=== PATIENT | female | born 1985 | race Caucasian/White ===

== ENCOUNTER 2017-12-03 07:58 | Emergency (ER) | payer MEDICAID, SELFPAY ==
[2017-12-03 08:03] VITALS: BP 144/98; PULSE 80; RESP 18; TEMP 36.8; O2SAT 96
--- NOTE | 2017-12-03 08:16 | ED.GENADUL_ITS ---
Discharge Plan Disposition Patient Disposition: HOME Condition: Improving Discharge Details Chief Complaint: RespSymp Clinical Impression: Pneumonia Primary Care Provider: AC,LOCAL ED Provider: Amauri An Home Meds and New Rx's Prescriptions: New prednisone 20 mg tablet 40 mg PO DAILY 5 Days Qty: 10 RF: 0 doxycycline hyclate 100 mg capsule 100 mg PO BID 10 Days Qty: 20 RF: 0 Continue methadone 10 mg/mL Concentrate 40 mg PO DAILY RF: 0 Discharge Instructions Instructions: Pneumonia (ED) Additional Instructions: Follow-up with your primary care physician in [facility] if not improving in 5-7 days time. Home to rest. Small, frequent sips of fluids to maintain hydration Take antibiotics and prednisone as prescribed. May use albuterol if needed for persistent cough during times of illness. Please continue your efforts to decrease smoking. Return to the emergency department for any acute concerns Discharge Data Discharge Date/Time-TO BE ENTERED AT DEPARTURE: 12/03/17 09:34 Medical Decision Making 32-year-old female smoker presents with cough and congestion over days time. She is afebrile and well-appearing with normal oxygenation. Patient given teaching and use of albuterol with improvement at the bedside. I will place her on a course of burst of steroids for bronchospasm. Chest x-ray does reveal linear infiltrate consistent with pneumonia. I will place her on a course of Augmentin. She has primary care [facility] with whom she will follow-up if not improving. Return precautions to the ER discussed the patient prior to discharge. HPI General Mode of arrival: ambulatory . Date/Time Provider Initiated Documentation: 12/03/17 08:08 . Limitations to Documentation: no limitations . History of Present Illness 32 year old F presents to the emergency department with the chief complaint of Cough, described as moderate, Quality is described as constant, Patient reports no radiation. Patient started experiencing this day(s) and it has been constant. No relieving factors improve symptom(s), No exacerbating factors reported . Patient notes fever/chills. HPI Narrative: 32-year-old female presents with cough, congestion, wheeze. She is a smoker and has positive sick contacts at home home. She has been able to tolerate liquids and solids by mouth without GI upset. She has had an inhaler as a child but none currently. Related Data Home Medications Medication Instructions Recorded Confirmed doxycycline hyclate 100 mg PO BID 10 Days #20 cap 12/03/17 methadone 40 mg PO DAILY 12/03/17 12/03/17 prednisone 40 mg PO DAILY 5 Days #10 tab 12/03/17 Previous Rx's Medication Instructions Recorded doxycycline hyclate 100 mg PO BID 10 Days #20 cap 12/03/17 prednisone 40 mg PO DAILY 5 Days #10 tab 12/03/17 Allergies Allergy/AdvReac Type Severity Reaction Status Date / Time Penicillins Allergy Intermediate Skin Rash Unverified 12/03/17 08:12 General Stated Complaint: RespSymp CHAD: 3 Review of Systems Review of Systems 8 systems reviewed and otherwise negative [facility] Social History Smoking/Tobacco Use Status: Current every day Exam Narrative Exam Narrative: 32-year-old female presents with fever, cough, congestion, wheeze. Her vital signs are unremarkable and reassuring. She is speaking in full sentences and has normal oxygenation. Patient's exam is most notable for bilateral end expiratory wheeze and cough. Consistent with bronchospasm. Patient given prednisone and albuterol, referred for chest x-ray to rule out underlying infiltrate. Course Vital Signs Temperature 36.8 C 12/03/17 08:03 Pulse 80 12/03/17 08:03 Respiratory Rate 18 12/03/17 08:03 Blood Pressure 144/98 H 12/03/17 08:03 Pulse Oximetry 96 12/03/17 08:03 Temperature 36.8 C 12/03/17 08:03 Temperature Source Temporal Artery Scan 12/03/17 08:03 Pulse 80 12/03/17 08:03 Respiratory Rate 18 12/03/17 08:03 Respiratory Effort 12/03/17 08:09 Respiratory Depth Normal 12/03/17 08:09 Blood Pressure 144/98 H 12/03/17 08:03 Blood Pressure Position Sitting 12/03/17 08:03 Pulse Oximetry 96 12/03/17 08:03 Oxygen Delivery Method Room Air 12/03/17 08:03 Oxygen Flow Rate 0 12/03/17 08:03 Pain Level 6 12/03/17 08:03
[2017-12-03] MEDS: predniSONE 20 MG TAB 60 MG PO (08:17)
[2017-12-03] MEDS: Albuterol HFA 8 GM 60 PUFF INH IH (08:17)
--- NOTE | 2017-12-03 09:10 | DI.RAD_ITS ---
SYMPTOM/DIAGNOSIS: COUGH, SOB PA AND LATERAL CHEST: The heart is not enlarged. There is a question of minimal patchy/streaky opacity of the left lower lung field which may correspond to the lingula. A small area of atelectasis or scarring also noted in the lingula. Otherwise the lungs are clear. No pleural effusion is seen. CONCLUSION: Question lingular infiltrate, correlation requested regarding the possibility of pneumonia.
--- NOTE | 2017-12-03 09:50 | RESPIRATORY ---
Pt instructed on MDI with spacer use. She was able to demonstrate back excellent technique.
== END 2017-12-03 09:34 | disposition home or self-care (01) ==
LOC: ER 09:35
PROVIDERS: Emergency Provider Emergency Medicine
DX: J18.9 Pneumonia, unspecified organism (principal); F17.210 Nicotine dependence, cigarettes, uncomplicated
CPT/HCPCS: 99283; 71046; 94664; J7512

== ENCOUNTER 2018-03-15 11:12 | Emergency (ER) | payer MEDICAID, SELFPAY ==
[2018-03-15 11:19] VITALS: BP 132/81; PULSE 97; RESP 18; TEMP 36.8; O2SAT 93
--- NOTE | 2018-03-15 11:24 | DI.RAD_ITS ---
SYMPTOMS/DIAGNOSIS: COUGH, ? PNEUMONIA PA AND LATERAL CHEST: Comparison 12/03/17. The heart is normal in size. The lungs are clear. The mediastinal structures and pleura appear intact. CONCLUSION: Normal chest. The findings were discussed with Dr. Garcia of the emergency department on the date of the examination.
--- NOTE | 2018-03-15 11:27 | ED.GENADUL_ITS ---
Discharge Plan Disposition Patient Disposition: HOME Condition: Improving Discharge Details Chief Complaint: RespSymp Clinical Impression: Acute bronchitis, Tobacco abuse Primary Care Provider: Barbara,Local ED Provider: Jeanne Garcia Home Meds and New Rx's Prescriptions: New prednisone 50 mg tablet 50 mg PO DAILY 4 Days Qty: 4 RF: 0 doxycycline hyclate 100 mg tablet 100 mg PO BID 5 Days Qty: 10 RF: 0 Continued methadone 10 mg/mL Concentrate 40 mg PO DAILY RF: 0 Discharge Instructions Instructions: Acute Bronchitis (ED) Additional Instructions: Take the steroids until finished. Use the albuterol inhaler as needed and directed. If your symptoms do not improve or worsen over the next few days, you may start the antibiotics. Consider quitting smoking as this will prolong your illness along with other dangerous side effects of smoking. You will receive a call from care management regarding a follow-up appoint with her primary care doctor for reevaluation. Return immediately to the emergency department any worsening or new concerning symptoms. Discharge Data Discharge Date/Time-TO BE ENTERED AT DEPARTURE: 03/15/18 13:23 Discharge Physician: Jeanne Garcia Medical Decision Making 33-year-old female with a history of asthma, former heroin use now on methadone for the past 2 years who presents with cough with green sputum, shortness of breath, wheezing, chest pain with coughing, left ear pain and headache for the past week. Denies fever and has had good appetite. Last antibiotics for pneumonia in November. O2 sat 93% on arrival. Heart rate 97. Patient appears nontoxic and in no acute distress. She does have frequent coughing and wheezing throughout. Neb treatment given on arrival. Will give second neb, p.o. steroids. Chest x-ray appears negative. Do not see utility in checking influenza of symptoms present for more than 1 week and she has no fevers or other flulike symptoms. 1300 --chest x-ray negative. Patient feels better and feels good to go home. Oxygen saturation 95% on room air. Breath sounds improved, still with some wheezing. Will send home with steroids and albuterol inhaler. Although no pneumonia on x-ray, patient is a smoker, will send home with antibiotics if symptoms do not improve or worsen over the next few days. Will place patient on care management list to arrange for follow-up appointment for reevaluation by primary care doctor. Patient instructed return here at any time if worse. Medical Records Medical records reviewed: Yes I reviewed the patient's medical records. Imaging Data Radiologic Study: Radiologist's impression: PA AND LATERAL CHEST: Comparison 12/03/17. The heart is normal in size. The lungs are clear. The mediastinal structures and pleura appear intact. CONCLUSION: Normal chest. Lab Data Lab results reviewed: Yes I reviewed the patient's lab results. test negative. HPI General Mode of arrival: ambulatory . Date/Time Provider Initiated Documentation: 03/15/18 11:24 . Limitations to Documentation: no limitations . Information obtained by: patient . HPI Narrative: Patient is a 33-year-old female with history of asthma on methadone due to previous heroin use who presents with cough with green sputum, shortness of breath, chest pain with coughing, headache, wheezing for the past week. States she has sore throat but this is now improved. Also admitted to some left ear pain fatigue. States she was diagnosed with pneumonia and last on antibiotics in November. She states she has been eating and drinking normally. She denies any known fever. She did not receive a flu shot this year. Related Data Home Medications Medication Instructions Recorded Confirmed methadone 40 mg PO DAILY 12/03/17 03/15/18 doxycycline hyclate 100 mg PO BID 5 Days #10 tab 03/15/18 prednisone 50 mg PO DAILY 4 Days #4 tab 03/15/18 Previous Rx's Medication Instructions Recorded doxycycline hyclate 100 mg PO BID 5 Days #10 tab 03/15/18 prednisone 50 mg PO DAILY 4 Days #4 tab 03/15/18 Allergies Allergy/AdvReac Type Severity Reaction Status Date / Time Penicillins Allergy Intermediate Skin Rash Unverified 12/03/17 08:12 General Stated Complaint: RespSymp CHAD: 3 Review of Systems Review of Systems All systems reviewed & are unremarkable except as noted in HPI and below Constitutional Reports as per HPI, Denies chills, Denies fever(s) and Reports headache(s) Eyes Denies blurry vision ENT Denies dizziness, Reports otalgia, Reports headache(s), Reports sore throat and Denies throat swelling Cardiovascular Reports chest pain and Reports dyspnea Respiratory Reports chest congestion, Reports cough, Reports pain with cough, Reports dyspnea and Reports wheezing Gastrointestinal Denies abdominal pain, Denies diarrhea and Denies vomiting Genitourinary Denies hematuria and Denies dysuria Musculoskeletal Denies back pain and Denies numbness Integumentary/Breasts Denies lesions and Denies rash Neurologic Denies dizziness, Reports headache(s) and Denies numbness Allergic/Immunologic Denies throat swelling and Reports wheezing [facility] Medical History Opiate abuse, episodic (Acute) Asthma (Chronic) Surgical History History of bilateral tubal ligation (Acute) History of hip surgery (Acute) Social History Smoking/Tobacco Use Status: Current every day alcohol intake: never substance use type: other details: former heroin use, now on methadone x 2 years Exam Const General: cooperative and healthy appearing Orientation: alert and awake HENMT Head: normal to inspection Ears: hearing grossly normal bilaterally, external ears normal and TM's normal bilaterally General nose exam: external nose normal Face and sinus: normal facial exam Mouth: oral mucosae normal Teeth and gingiva: dentition normal Throat: posterior oropharynx normal Eyes General: appearance normal, both eyes and all related structures Eyelids: eyelids normal EOM: EOM intact bilaterally Neck Neck: normal visual inspection Lymphatic: no lymphadenopathy noted Resp Effort & Inspection: normal respiratory effort and able to speak in complete sentences Auscultation: no rhonchi and wheezes Cardio Rate: regular rate Rhythm: regular rhythm Skin General skin exam: no rashes or lesions noted Neuro General: alert and awake Cognition: normal cognition Speech: speech normal Gait: normal gait Motor: muscle tone normal throughout Sensory Exam: no sensory deficits noted Extrem General: normal to inspection, full ROM and no edema Psych Appearance: grossly normal Mental Status: mental status grossly normal Speech and Movement: speech and movement normal Affect: normal affect Thought Process: normal Course Vital Signs Temperature 98.2 F 03/15/18 11:19 Pulse 97 H 03/15/18 11:19 Respiratory Rate 18 03/15/18 11:19 Blood Pressure 132/81 03/15/18 11:19 Pulse Oximetry 93 L 03/15/18 11:19 Temperature 98.2 F 03/15/18 11:19 Temperature Source Temporal Artery Scan 03/15/18 11:19 Pulse 97 H 03/15/18 11:19 Respiratory Rate 18 03/15/18 11:19 Respiratory Effort Non-Labored 03/15/18 11:23 Blood Pressure 132/81 03/15/18 11:19 Blood Pressure Position Sitting 03/15/18 11:19 Pulse Oximetry 93 L 03/15/18 11:19 Oxygen Delivery Method Room Air 03/15/18 11:19 Oxygen Flow Rate 0 03/15/18 11:19
[2018-03-15 11:50] VITALS: RESP 4
[2018-03-15] MEDS: Albuterol/Ipratropium 3 ML UPD VIAL UPD (11:50)
[2018-03-15] MEDS: predniSONE 20 MG TAB 60 MG PO (12:34)
[2018-03-15] MEDS: Albuterol 2.5 MG/3 ML INH SOLN VIAL 5 MG UPD (12:35)
--- NOTE | 2018-03-15 12:38 | NUR.NOTE ---
patient medicated per MD order Nursing Note:
[2018-03-15 13:02] VITALS: BP 119/70; PULSE 98; RESP 20; O2SAT 97
[2018-03-15] MEDS: Albuterol HFA 8 GM 60 PUFF INH IH (13:22)
--- NOTE | 2018-03-18 11:26 | PDOC.ERCMPRO ---
Care Management Progress Note 03/18- Dr. 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 Referral faxed to [facility] this am.
--- NOTE | 2018-03-18 11:51 | CMPROGNOTE_ITS ---
Care Management Progress Note 03/18- Dr. 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 Referral faxed to [facility] this am.
== END 2018-03-15 13:23 | disposition home or self-care (01) ==
PROVIDERS: Emergency Provider Physician Assistant
DX: J20.9 Acute bronchitis, unspecified (principal); F17.210 Nicotine dependence, cigarettes, uncomplicated
CPT/HCPCS: 81025; 94640; 99284; 71046; 99285; J7512; J7613; J7620

== ENCOUNTER 2018-09-22 11:40 | Emergency (ER) | payer MEDICAID, SELFPAY ==
[2018-09-22 11:45] VITALS: BP 133/93; PULSE 84; RESP 14; TEMP 36.8; O2SAT 97
--- NOTE | 2018-09-22 12:55 | ED.GENADUL_ITS ---
Discharge Plan Disposition Patient Disposition: HOME Condition: Stable Discharge Details Chief Complaint: FacialProb Clinical Impression: TMJ inflammation, Swelling of right side of face Primary Care Provider: Barbara,Local ED Provider: Jeanne Garcia Home Meds and New Rx's Prescriptions: New methylprednisolone [Medrol (Avinash)] 4 mg tablets,dose pack See Rx Instructions .ROUTE .COMPLEX Qty: 21 RF: 0 doxycycline hyclate 100 mg tablet 100 mg PO BID 7 Days Qty: 14 RF: 0 Continued methadone 10 mg/mL Concentrate 40 mg PO DAILY RF: 0 Discharge Instructions Instructions: Temporomandibular Disorder (ED) Additional Instructions: Apply ice to the affected area several times daily for 20 minutes at a time. Alternate Tylenol and Motrin as needed and directed for pain. Take the steroids until finished. If you have no relief in symptoms or development of redness, worsening pain or fever, start the antibiotics. Follow-up with your primary care doctor next week for reevaluation. Return immediately to the emergency department if you develop any worsening or new concerning symptoms. Discharge Data Discharge Physician: Jeanne Garcia Medical Decision Making 33-year-old female with a history of asthma and former narcotic drug abuse who presents with right-sided facial swelling and pain since yesterday. She denies fever. She denies any known injury. She states she has not been excessively chewing any feelings and is unsure if she grinds her teeth. She denies any ear pain, sore throat, cough or neck pain. Vitals within normal limits. She is afebrile and appears nontoxic. She has an area of tenderness and edema overlying her right TMJ. Most likely appears consistent with tendinitis versus sprain strain of TMJ. Swelling and tenderness is localized in the TMJ and does not appear consistent with salivary stone. Do not see an indication for imaging. Suspect less likely dental infection or cellulitis. Patient advised to alternate Tylenol and Motrin. We will send home with a prescription for Medrol Dosepak. We will also give a prescription for antibiotics which she advised to start if she develops any signs of cellulitis. She is advised to follow-up with her primary care doctor for evaluation or to return here if worse. HPI General Mode of arrival: ambulatory . Date/Time Provider Initiated Documentation: 09/22/18 11:51 . Limitations to Documentation: no limitations . Information obtained by: patient . HPI Narrative: Patient is a 33-year-old female who presents with right-sided facial swelling since yesterday. She states the area is painful and tender to touch. She denies any known fever, ear pain, sore throat, dental pain or injury. She states she does not chew gum or chew anything recently which may have been excessively hard. She denies headache or neck pain. She took Motrin yesterday for pain without relief. Related Data Home Medications Medication Instructions Recorded Confirmed methadone 40 mg PO DAILY 12/03/17 09/22/18 doxycycline hyclate 100 mg PO BID 7 Days #14 tab 09/22/18 methylprednisolone [Medrol (Avinash)] See Rx Instructions .ROUTE 09/22/18 .COMPLEX #21 dose pk Previous Rx's Medication Instructions Recorded doxycycline hyclate 100 mg PO BID 7 Days #14 tab 09/22/18 methylprednisolone [Medrol (Avinash)] See Rx Instructions .ROUTE 09/22/18 .COMPLEX #21 dose pk Allergies Allergy/AdvReac Type Severity Reaction Status Date / Time Penicillins Allergy Intermediate Skin Rash Unverified 09/22/18 11:48 General Stated Complaint: FacialProb CHAD: 4 Review of Systems Review of Systems All systems reviewed & are unremarkable except as noted in HPI and below Constitutional Reports as per HPI, Denies chills and Denies fever(s) Eyes Denies blurry vision ENT Denies dizziness, Reports facial pain (and swelling), Denies sore throat and Denies throat swelling Cardiovascular Denies chest pain and Denies dyspnea Respiratory Denies cough and Denies dyspnea Gastrointestinal Denies abdominal pain, Denies diarrhea and Denies vomiting Genitourinary Denies hematuria and Denies dysuria Musculoskeletal Denies back pain and Denies numbness Integumentary/Breasts Denies lesions and Denies rash Neurologic Denies dizziness, Denies focal weakness and Denies numbness Allergic/Immunologic Denies throat swelling [facility] Social History Smoking/Tobacco Use Status: Current every day Tobacco Type: cigarettes Alcohol Intake: never Drug use: Never Substance use type: does not use and other Details: former heroin use, now on methadone x 2 years Do you feel safe at home: Yes Do you feel safe in your relationship?: Yes Exam Const General: cooperative and healthy appearing Orientation: alert and awake HENMT Head: atraumatic Head images: 1. 3x3cm area of tender edema overlying R temporomandibular joint. There is no erythema, fluctuance, induration. No abrasions or puncture wounds. No lesion or rash noted. Ears: hearing grossly normal bilaterally, external ears normal and TM's normal bilaterally General nose exam: external nose normal Mouth: oral mucosae normal Teeth and gingiva: dentition normal and other (No tenderness to palp of teeth. No evidence of dental abscess or trauma) Throat: posterior oropharynx normal Eyes General: appearance normal, both eyes and all related structures Eyelids: eyelids normal Pupils: PERRL EOM: EOM intact bilaterally Neck Neck: normal visual inspection Lymphatic: no lymphadenopathy noted Chest Chest: normal inspection of the chest Resp Effort & Inspection: normal respiratory effort and able to speak in complete sentences Cardio Rate: regular rate Skin General skin exam: no rashes or lesions noted Neuro General: alert and awake Cognition: normal cognition Speech: speech normal Gait: normal gait Motor: muscle tone normal throughout Sensory Exam: no sensory deficits noted Extrem General: normal to inspection, full ROM and normal capillary refill Psych Appearance: grossly normal Mental Status: mental status grossly normal Speech and Movement: speech and movement normal Affect: normal affect Thought Process: normal Course Vital Signs Temperature 98.2 F 09/22/18 11:45 Pulse 84 09/22/18 11:45 Respiratory Rate 14 09/22/18 11:45 Blood Pressure 133/93 H 09/22/18 11:45 Pulse Oximetry 97 09/22/18 11:45 Temperature 98.2 F 09/22/18 11:45 Temperature Source Temporal Artery Scan 09/22/18 11:45 Pulse 84 09/22/18 11:45 Respiratory Rate 14 09/22/18 11:45 Respiratory Effort Non-Labored 09/22/18 11:47 Blood Pressure 133/93 H 09/22/18 11:45 Blood Pressure Position Sitting 09/22/18 11:45 Pulse Oximetry 97 09/22/18 11:45 Oxygen Delivery Method Room Air 09/22/18 11:45 Oxygen Flow Rate 0 09/22/18 11:45 Pain Level 3 09/22/18 11:45
== END 2018-09-22 13:30 | disposition home or self-care (01) ==
PROVIDERS: Emergency Provider Physician Assistant
DX: R22.0 Localized swelling, mass and lump, head (principal); M26.69 Other specified disorders of temporomandibular joint; M26.621 Arthralgia of right temporomandibular joint
CPT/HCPCS: 99283

== ENCOUNTER 2018-11-03 13:27 | Emergency (ER) | payer MEDICAID, SELFPAY ==
[2018-11-03 13:32] VITALS: BP 125/83; PULSE 71; RESP 16; TEMP 36.4; O2SAT 98
--- NOTE | 2018-11-03 13:39 | DI.RAD_ITS ---
SYMPTOM/DIAGNOSIS: GLASS IN HEEL LEFT HEEL: No bony, joint or soft tissue abnormality is seen. No radiopaque foreign body identified.
--- NOTE | 2018-11-03 13:54 | ED.GENADUL_ITS ---
Discharge Plan Disposition Patient Disposition: HOME Condition: Stable Discharge Details Chief Complaint: Laceration Clinical Impression: Puncture wound, Laceration of foot Primary Care Provider: Barbara,Local ED Provider: Jeanne Garcia Discharge Instructions Instructions: Laceration (ED), Puncture Wound (ED) Additional Instructions: Keep wound clean and dry. Apply topical antibiotic ointment with any redness, swelling or pain. Alternate Tylenol and Motrin as needed directed for pain. Be sure to rest and elevate your left foot as much as possible. Follow-up with a primary care doctor for reevaluation. Return to the emergency department if you develop any worsening or concerning symptoms such as fever, or red streaking up your leg. Discharge Data Discharge Date/Time-TO BE ENTERED AT DEPARTURE: 11/03/18 15:35 Discharge Physician: Jeanne Garcia Medical Decision Making 33-year-old female presents with concern for embedded glass in her left heel sustained while walking a few days ago. There is a 3 mm superficial laceration/puncture wound to the left heel. There is no evidence of foreign body, cellulitis, bony deformity or abscess. Left heel x-ray obtained and negative. Left heel was irrigated well. Discussed with patient that appears unlikely there is a foreign body at this time, however if there is a small piece of glass, the risk of further injury with exploration may be higher than the risk of a tiny piece of glass embedded that is unseen. She is advised to keep wound clean and dry. Will treat with antibiotics. She does not have a primary care doctor but declined follow-up appointment. She is advised to return here if she has any worsening or new concerning symptoms such as fever, increased pain redness or swelling. Medical Records Medical records reviewed: Yes I reviewed the patient's medical records. Imaging Data Radiologic Study: Radiologist's impression: XR Left Calcaneus EXAM DATE/TIME: 11/03/2018 1:40 PM CLINICAL HISTORY: 33 years old, female; Injury or trauma; Injury history: Glass in heel; Initial encounter; Laceration; Left; With foreign body TECHNIQUE: Imaging protocol: XR of the Left calcaneus. Views: 2 or more views. COMPARISON: No relevant prior studies available. FINDINGS: No radiopaque foreign body. Bony structures intact. No soft tissue air. IMPRESSION: Unremarkable exam. HPI General Mode of arrival: ambulatory . Date/Time Provider Initiated Documentation: 11/03/18 13:41 . Limitations to Documentation: no limitations . Information obtained by: patient . HPI Narrative: Patient is a 33-year-old female who presents for evaluation of possible foreign body in her right heel. States that a few days ago she stepped on glass while wearing a sock. She states she remove the majority of the glass out of her foot but thinks there might be still a small piece embedded. She states she thinks her tetanus is overdue. Related Data Allergies Allergy/AdvReac Type Severity Reaction Status Date / Time Penicillins Allergy Intermediate Skin Rash Unverified 09/22/18 11:48 General Stated Complaint: Laceration CHAD: 4 Review of Systems Review of Systems ROS Unobtainable: All systems reviewed & are unremarkable except as noted in HPI and below PFSH Social History Smoking/Tobacco Use Status: Current every day Tobacco Type: cigarettes Alcohol Intake: current Alcohol Intake frequency: holidays/special occasions only Drug use: Occasionally Substance use type: marijuana and other Details: former heroin use, now on methadone x 2 years Do you feel safe at home: Yes Do you feel safe in your relationship?: Yes Exam Const General: cooperative, healthy appearing and no acute distress HENMT Head: normal to inspection Mouth: oral mucosae normal Eyes General: appearance normal, both eyes and all related structures Neck Neck: normal visual inspection Resp Effort & Inspection: normal respiratory effort and able to speak in complete sentences Cardio Rate: regular rate Skin General skin exam: no rashes or lesions noted Neuro General: alert, awake and oriented x3 Motor: muscle tone normal throughout Extrem Ankle/foot/toe images: 1. 3 mm superficial laceration/puncture wound to left heel. There is no palpable foreign body, erythema, edema, ecchymosis, active bleeding, induration or fluctuance. Psych Appearance: grossly normal Affect: normal affect Course Vital Signs Vital signs: Vital Signs Temperature 97.5 F L 11/03/18 13:32 Pulse 71 11/03/18 13:32 Respiratory Rate 16 11/03/18 13:32 Blood Pressure 125/83 11/03/18 13:32 Pulse Oximetry 98 11/03/18 13:32 Temperature 97.5 F L 11/03/18 13:32 Temperature Source Skin 11/03/18 13:32 Pulse 71 11/03/18 13:32 Respiratory Rate 16 11/03/18 13:32 Respiratory Effort Non-Labored 11/03/18 13:37 Blood Pressure 125/83 11/03/18 13:32 Pulse Oximetry 98 11/03/18 13:32 Oxygen Delivery Method Room Air 11/03/18 13:32 Oxygen Flow Rate 0 11/03/18 13:32
--- NOTE | 2018-11-03 14:22 | DI.VRAD_ITS ---
EXAM: XR Left Calcaneus EXAM DATE/TIME: 11/03/2018 1:40 PM CLINICAL HISTORY: 33 years old, female; Injury or trauma; Injury history: Glass in heel; Initial encounter; Laceration; Left; With foreign body TECHNIQUE: Imaging protocol: XR of the Left calcaneus. Views: 2 or more views. COMPARISON: No relevant prior studies available. FINDINGS: No radiopaque foreign body. Bony structures intact. No soft tissue air. IMPRESSION: Unremarkable exam. Dictated and Authenticated by: Sebastian Obrien MD. Ordering:TONE Provider Temporary MD
[2018-11-03] MEDS: Doxycycline Hyclate 100 MG CAP PO (15:27)
== END 2018-11-03 15:35 | disposition home or self-care (01) ==
PROVIDERS: Emergency Provider Physician Assistant
DX: S91.332A Puncture wound without foreign body, left foot, initial encounter (principal); W45.8XXA Other foreign body or object entering through skin, initial encounter
CPT/HCPCS: 90471; 99283; 73650

== ENCOUNTER 2021-02-17 15:27 | Emergency (ER) | payer MEDICAID, SELFPAY ==
[2021-02-17 15:34] VITALS: BP 118/76; PULSE 68; RESP 18; TEMP 36.5; O2SAT 98
--- NOTE | 2021-02-17 15:57 | ED.GENADUL_ITS ---
Discharge Plan Disposition Patient Disposition: HOME Condition: Stable Discharge Details Clinical Impression: Sinusitis Primary Care Provider: Barbara,Local ED Provider: Heron Morse Home Meds and New Rx's Prescriptions: New doxycycline hyclate 100 mg tablet 100 mg PO BID Qty: 14 RF: 0 prednisone 20 mg tablet 60 mg PO DAILY 4 Days Qty: 12 RF: 0 albuterol sulfate 90 mcg/actuation aerosol powdr breath activated 2 inh inhalation Q6H PRN (Reason: shortness of breath or wheezing) Qty: 1 RF: 0 Discharge Instructions Additional Instructions: you have a pending covid test use the inhaler as needed and take the doxycycline and prednisone as prescribed if not better in a week follow up with your primary care provider or urgent care/express care if you feel more ill or have worsening shortness of breath return to the emergency department Stand Alone Forms: PENDING COVID-19 TESTING Medical Decision Making 35 yo female with no significant chronic medical problems though she states when she gets ill she does use an inhaler sometimes, comes in with 10 or so days of cough, sinus pressure and nasal congestion and initially had fevers to 101. States her fever has subsided but still has the sinus pressure and cough. She denies n/v, rashes, travel. She has not had a covid test. She is speaking in full sentences on exam, no hypoxia, no tachycardia, no leg swelling or jvd. Normal lung sounds no murmurs. Does have clear rhinorrhea. Given normal oxygen saturation and lung exam do not feel chest xray indicated. Her symptoms seem typical of sinusitis and given 10 days of symptoms will start antibiotics and also give steroids and an inhaler at her request. She is stable for d/c, will send a covid test. ADvised to f/u with pcp if not improving by next week and return precautions given Differential Diagnosis Differential Diagnosis: sinusitis, covid, bronchitis HPI General Mode of arrival: ambulatory . Date/Time Provider Initiated Documentation: 02/17/21 15:28 . Limitations to Documentation: no limitations . Information obtained by: patient . History of Present Illness 35 year old F presents to the emergency department with the chief complaint of cough, described as moderate, Patient reports no radiation. Patient started experiencing this day(s) (10) and it has been constant. No relieving factors improve symptom(s), No exacerbating factors reported . Patient notes no other symptoms.. Patient did receive the following treatments prior to arrival, none Related Data Home Medications Medication Instructions Recorded Confirmed albuterol sulfate 2 inh INHALATION Q6H PRN #1 ea 02/17/21 doxycycline hyclate 100 mg PO BID #14 tab 02/17/21 prednisone 60 mg PO DAILY 4 Days #12 tab 02/17/21 Previous Rx's Medication Instructions Recorded albuterol sulfate 2 inh INHALATION Q6H PRN #1 ea 02/17/21 doxycycline hyclate 100 mg PO BID #14 tab 02/17/21 prednisone 60 mg PO DAILY 4 Days #12 tab 02/17/21 Allergies Allergy/AdvReac Type Severity Reaction Status Date / Time Penicillins Allergy Intermediate Skin Rash Unverified 02/17/21 15:40 General Stated Complaint: RespSymp CHAD: 3 Review of Systems All systems reviewed & are unremarkable except as noted in HPI and below Constitutional Constitutional: Denies chills and Denies weakness Cardiovascular Cardiovascular: Denies chest pain and Denies dyspnea Respiratory Respiratory: Denies dyspnea Gastrointestinal Gastrointestinal: Denies abdominal pain, Denies nausea and Denies vomiting Musculoskeletal Musculoskeletal: Denies joint swelling Neurologic Neurologic: Denies weakness PFSH All Active Problems (Updated 02/17/21 @ 16:03 by Heron Morse MD) Sinusitis (Acute) Medical History (Updated 02/17/21 @ 16:03 by Heron Morse MD) Asthma Opiate abuse, episodic Surgical History History of bilateral tubal ligation History of hip surgery Social History Smoking/Tobacco Use Status: Current every day Tobacco Type: cigarettes Smoking risk assessment performed?: Yes Alcohol Intake: current Alcohol Intake frequency: holidays/special occasions only Drug use: Occasionally Substance use type: marijuana and other Details: former heroin use, now on methadone x 2 years Do you feel safe at home: Yes Do you feel safe in your relationship?: Yes Exam Const General: no acute distress Orientation: alert HENMT Head: normal to inspection Ears: external ears normal General nose exam: external nose normal Mouth: moist mucous membranes Eyes General: appearance normal, both eyes and all related structures Neck Neck: normal visual inspection Resp Effort & Inspection: normal respiratory effort and able to speak in complete sentences Cardio Rate: regular rate Skin General skin exam: no rashes or lesions noted Neuro General: patient alert and patient oriented x3 Extrem General: normal to inspection Psych Mental Status: mental status grossly normal Course Vital Signs Vital signs: Vital Signs Temperature 36.5 C 02/17/21 15:34 Pulse 68 02/17/21 15:34 Respiratory Rate 18 02/17/21 15:34 Blood Pressure 118/76 02/17/21 15:34 Pulse Oximetry 98 02/17/21 15:34 Temperature 36.5 C 02/17/21 15:34 Temperature Source Temporal Artery Scan 02/17/21 15:34 Pulse 68 02/17/21 15:34 Respiratory Rate 18 02/17/21 15:34 Respiratory Effort Non-Labored 02/17/21 15:41 Respiratory Depth Normal 02/17/21 15:41 Blood Pressure 118/76 02/17/21 15:34 Blood Pressure Position Sitting 02/17/21 15:34 Pulse Oximetry 98 02/17/21 15:34 Oxygen Delivery Method Room Air 02/17/21 15:34 Oxygen Flow Rate 0 02/17/21 15:34 Pain Level 5 02/17/21 15:34
--- NOTE | 2021-02-17 16:04 | NUR.NOTE ---
Nursing Note: PT INFO GIVEN TO CARE MANAGEMENT TO ESTABLISH CARE AND TO BE SEEN FOR ASTHMA JOAO. [facility]
[2021-02-18 21:41] LABS: COVID-19 RT-PCR UVMMC Result Positive (Negative)
--- NOTE | 2021-02-18 21:47 | W.ED.FU ---
Received notice from laboratory of patient's positive COVID-19 test. She was informed by phone on February 18 at 9:45 PM.
== END 2021-02-17 16:19 | disposition home or self-care (01) ==
PROVIDERS: Emergency Provider Emergency Medicine
DX: U07.1 COVID-19 (principal); R50.9 Fever, unspecified; J01.90 Acute sinusitis, unspecified
CPT/HCPCS: 99283; U0003

== ENCOUNTER 2022-12-14 08:46 | Emergency (ER) | payer MEDICAID, SELFPAY ==
[2022-12-14 08:50] VITALS: BP 163/88; PULSE 88; RESP 18; TEMP 36.6; O2SAT 98
--- NOTE | 2022-12-14 09:09 | ED.GENADUL_ITS ---
Discharge Plan Disposition Patient Disposition: Home Condition: Stable Discharge Details Clinical Impression: Pneumonia Primary Care Provider: Barbara,Local ED Provider: Mark Pizarro Home Meds and New Rx's Prescriptions: New doxycycline hyclate 100 mg tablet 100 mg PO BID Qty: 10 0RF albuterol sulfate 90 mcg/actuation HFA aerosol inhaler 2 puff inhalation Q6H PRNQty: 8.5 0RF Discontinued albuterol sulfate 90 mcg/actuation aerosol powdr breath activated 2 inh inhalation Q6H PRN (Reason: shortness of breath or wheezing) Qty: 1 0RF Discharge Instructions Instructions: Pneumonia (ED) Additional Instructions: I am concerned that your infection has progressed to pneumonia. Please take antibiotic as prescribed. Please drink plenty of fluid and allow for plenty of rest. Please stop smoking. There is nothing better he can do for your health. Please talk with your doctor further about potential therapies to help you quit smoking. Your blood pressure was elevated today. Please be sure to discuss this with your primary care physician. This should be rechecked. If blood pressure remains elevated additional diagnostics and therapeutic treatment may be necessary. Please contact a primary care physician to arrange follow-up. Return to the ER immediately for any worsening or new concerning symptoms. Discharge Data Discharge Date/Time-TO BE ENTERED AT DEPARTURE: 12/14/22 10:00 Medical Decision Making 37-year-old female smoker with history of asthma here with productive cough, worsening over the past week. Patient is saturating well and in no respiratory distress at this time. She does note she has had some wheezing recently and is out of her albuterol. I will refill prescription for this. Plan to initiate treatment for bacterial pneumonia based on exam and history. I will start doxycycline as patient has penicillin allergy. Considered COVID illness. [id number] COVID testing was negative at home and negative here. Usual customary discharge instructions reviewed with the patient. HPI General Mode of arrival: ambulatory . Date/Time Provider Initiated Documentation: 12/14/22 08:55 . Limitations to Documentation: no limitations . Information obtained by: patient . HPI Narrative: 37-year-old female smoker with history of asthma presents with chief complaint of cough. Patient notes she has been sick for the past 1 week. Worse over the past 3 days. She notes significant cough, intermittently productive of green sputum. She is having difficulty sleeping secondary to cough. Patient has associated ear fullness. Patient is concerned that she could have pneumonia. Patient has no PCP. Related Data Home Medications Medication Instructions Recorded Confirmed albuterol sulfate 90 mcg/actuation 2 puff inhalation Q6H PRN #8.5 12/14/22 aerosol inhaler grams doxycycline hyclate 100 mg tablet 100 mg PO BID #10 tabs 12/14/22 Previous Rx's Medication Instructions Recorded albuterol sulfate 90 mcg/actuation 2 puff inhalation Q6H PRN #8.5 12/14/22 aerosol inhaler grams doxycycline hyclate 100 mg tablet 100 mg PO BID #10 tabs 12/14/22 Allergies Allergy/AdvReac Type Severity Reaction Status Date / Time Penicillins Allergy Intermediate Skin Rash Unverified 12/14/22 08:56 General Stated Complaint: RespSymp CHAD: 3 PFSH All Active Problems Pneumonia (Acute) Medical History Opiate abuse, episodic Asthma Surgical History History of bilateral tubal ligation History of hip surgery Social History Smoking/Tobacco Use Status: Current every day Tobacco Type: cigarettes Smoking risk assessment performed?: Yes Alcohol Intake: current Alcohol Intake frequency: holidays/special occasions only Drug use: Occasionally Substance use type: marijuana and other Details: former heroin use, now on methadone x 2 years Housing: apartment Do you feel safe at home: Yes Do you feel safe in your relationship?: Yes Exam Const General: cooperative and no acute distress HENMT Mouth: moist mucous membranes Eyes Conjunctivae: normal conjunctivae Sclera: normal sclerae Neck Neck: trachea midline and supple Resp Effort & Inspection: able to speak in complete sentences, cough and not labored Auscultation: rales on the right and rhonchi Cardio Rate: regular rate and not tachycardic Rhythm: regular rhythm GI Palpation: soft, not firm, no guarding, no masses, not rigid and nontender Skin General skin exam: no rashes or lesions noted Neuro General: patient alert, patient awake and tone normal Extrem General: no edema Psych Appearance: grossly normal Mental Status: mental status grossly normal Course Vital Signs Vital signs: Vital Signs Temperature 36.6 C 12/14/22 08:50 Pulse 88 12/14/22 08:50 Respiratory Rate 18 12/14/22 08:50 Blood Pressure 163/88 H 12/14/22 08:50 Pulse Oximetry 98 12/14/22 08:50 Temperature 36.6 C 12/14/22 08:50 Pulse 88 12/14/22 08:50 Respiratory Rate 18 12/14/22 08:50 Respiratory Effort Normal, Non-Labored 12/14/22 08:54 Blood Pressure 163/88 H 12/14/22 08:50 Pulse Oximetry 98 12/14/22 08:50 Oxygen Delivery Method Room Air 12/14/22 08:50 Oxygen Flow Rate 0 12/14/22 08:50 PAWSS Have you Been Recently Intoxicated or Drunk Within the Last 30 days?: No Have you Ever Experienced Previous Episodes of Alcohol Withdrawal?: No Have you ever Experienced Withdrawal Seizures?: No Have you ever Experienced Delirium Tremens(DT)s?: No Have you ever undergone Alcohol Rehabilitation Treatment (i.e, inpt ot outpatient treatment programs)?: No Have you ever Experienced Blackouts?: No Have you ever Combined Alcohol with other Downers within the last 90 days?: No Have you ever Combined Alcohol with any other Substance of Abuse during the last 90 days?: No Result: 0
--- NOTE | 2022-12-14 09:12 | NUR.NOTE ---
Referral sent to [facility] for assistance obtaining a Primary Care Provider as well as Smoking Cessation.
[2022-12-14 09:17] LABS: Source Nasal/Nares
[2022-12-14] MEDS: Doxycycline Hyclate 100 MG CAP PO (09:45)
[2022-12-14 09:49] VITALS: BP 119/80; PULSE 74; RESP 20; TEMP 36.4; O2SAT 98
[2022-12-14 09:50] LABS: COVID-19 PCR Negative (Negative)
== END 2022-12-14 10:00 | disposition home or self-care (01) ==
LOC: ER 09:15
PROVIDERS: Emergency Provider Student in an Organized Health Care Education/Training Program
DX: J18.9 Pneumonia, unspecified organism; R05.9 Cough, unspecified; J45.909 Unspecified asthma, uncomplicated; Z88.0 Allergy status to penicillin; Z72.0 Tobacco use
CPT/HCPCS: 87635; 99283

== ENCOUNTER 2023-07-16 11:08 | Emergency (ER) | payer MEDICAID, SELFPAY ==
[2023-07-16 11:16] VITALS: BP 131/68; PULSE 74; RESP 18; TEMP 36.4; O2SAT 100
[2023-07-16 12:09] VITALS: BP 119/80; PULSE 82; RESP 15; O2SAT 99
--- NOTE | 2023-07-16 12:30 | DI.RAD_ITS ---
Exam(s) XR LUMBAR SPINE COMPLETE EXAM: XR LUMBAR SPINE COMPLETE CLINICAL HISTORY: Back pain. TECHNIQUE: 2D digital imaging was performed. Five views. COMPARISON: No exams were available for comparison FINDINGS: BONES: No fracture or destructive lesion. Vertebral body heights are maintained. Mild facet hypertro phy identified. DISKS: Mild narrowing of the L4-5 disc space. Moderate narrowing of the L5-S1 disc space. The remai cyril intervertebral disc spaces are maintained. ALIGNMENT: Lumbar spinal alignment is within normal limits. SOFT TISSUE: Normal. IMPRESSION: Degenerative changes greatest at L5-S1. DATA REPOSITORY: RADIATION DOSE DELIVERED:
--- NOTE | 2023-07-16 12:37 | ED.GENADUL_ITS ---
Discharge Plan Disposition Patient Disposition: Home Condition: Stable Discharge Details Clinical Impression: Lumbago with sciatica, left side Primary Care Provider: None,None ED Provider: Tyesha Brush Home Meds and New Rx's Prescriptions: No Action albuterol sulfate 90 mcg/actuation HFA aerosol inhaler 2 puff inhalation Q6H PRNQty: 8.5 0RF Discharge Instructions Instructions: Sciatica (ED), Low Back Strain (ED), Lower Back Exercises (ED) Additional Instructions: At this time x-ray shows no evidence of acute fracture. There is some disc narrowing noted at L5-S1 consistent with degenerative disc disease as we discussed previously. Take the muscle relaxers as directed. You may use lidocaine patches or similar topical cream which you can get [id number]. Please take Tylenol or Ibuprofen with food every 4-6 hours as needed for pain and swelling. Follow up with primary care provider in 3-5 days. Return to ED sooner if any worsening loss of bowel or bladder control, unable to move your leg, new weakness or concerns. You are placed on a care management list to assist you in getting set up with PCP. Discharge Data Discharge Date/Time-TO BE ENTERED AT DEPARTURE: 07/16/23 14:55 HPI General Mode of arrival: ambulatory . Date/Time Provider Initiated Documentation: 07/16/23 11:26 . Limitations to Documentation: no limitations . Information obtained by: patient and RN notes reviewed . HPI Narrative: 38-year-old female presents to the ER with a chief complaint of lower back pain which began yesterday after bending over to pick something up she does have radiation down her left leg to her mid calf. Denies any numbness or tingling no loss of bowel or bladder control denies any saddle anesthesia. No history of back surgeries. Denies any urinary symptoms any dysuria or associated symptoms. Related Data Home Medications Medication Instructions Recorded Confirmed albuterol sulfate 90 mcg/actuation 2 puff inhalation Q6H PRN #8.5 12/14/22 07/16/23 aerosol inhaler grams Previous Rx's Medication Instructions Recorded albuterol sulfate 90 mcg/actuation 2 puff inhalation Q6H PRN #8.5 12/14/22 aerosol inhaler grams Allergies Allergy/AdvReac Type Severity Reaction Status Date / Time Penicillins Allergy Intermediate Skin Rash Unverified 07/16/23 11:19 General Stated Complaint: Orthopedic CHAD: 4 Review of Systems All systems reviewed & are unremarkable except as noted in HPI and below Musculoskeletal Musculoskeletal: Reports as per HPI, Reports back pain, Reports radiating pain into limb and Reports stiffness Exam Narrative Exam Narrative: Constitutional: Alert and oriented x3. Appears stated age. Normal body habitus. Head: Normocephalic, no trauma. Chest: RRR, Normal S1, S2, distal pulses intact. Resp: Lungs clear to auscultation bilaterally, no wheezes, rales, or rhonchi. Abdomen: Soft, non-distended, Normoactive bowel sounds all 4 quads. Musculoskeletal: Unable to assess gait, moves all 4 extremities without difficulty. Straight leg test positive on the left, left-sided paraspinous tenderness noted to left lower lumbar region, no crepitus or step-off noted on the L-spine T-spine. Skin: No suspicious rashes or lesions. Capillary refill less than 2 sec. Neurologic: Cranial nerves II-XII intact. Alert and oriented x 3. Motor: No deficits noted. Sensory: Intact bilaterally all 4 extremities. Hematologic/Lymphatic: No ecchymosis, no lymphadenopathy. Back/Spine/Pelvis Back: no CVA tenderness and back tenderness Cervical Spine: normal cervical lordosis and cervical ROM normal Thoracic/Lumbar Spine: thoracic and lumbar spine normal to inspection and straight leg raise positive Course Vital Signs Vital signs: Vital Signs Temperature 36.4 C 07/16/23 11:16 Pulse 74 07/16/23 11:16 Respiratory Rate 18 07/16/23 11:16 Blood Pressure 131/68 07/16/23 11:16 Pulse Oximetry 100 07/16/23 11:16 Temperature 36.4 C 07/16/23 11:16 Temperature Source Temporal Artery Scan 07/16/23 11:16 Pulse 82 07/16/23 12:09 Respiratory Rate 15 07/16/23 12:09 Respiratory Effort Normal, Non-Labored 07/16/23 11:18 Blood Pressure 119/80 07/16/23 12:09 Blood Pressure Position Sitting 07/16/23 11:16 Pulse Oximetry 99 07/16/23 12:09 Oxygen Delivery Method Room Air 07/16/23 12:09 Oxygen Flow Rate 0 07/16/23 12:09 Pain Level 6 07/16/23 12:31 Medical Decision Making 38-year-old female presents to the ER with a chief complaint of lower back pain which began yesterday after bending over to pick something up she does have radiation down her left leg to her mid calf. Denies any numbness or tingling no loss of bowel or bladder control denies any saddle anesthesia. No history of back surgeries. She does have positive straight leg test on the left. On exam she has no significant midline tenderness crepitus or step-off does have paraspinous tenderness noted. X-ray shows some bone spurring at L5 and L4, disc narrowing at L5 and S1. Patient reports she feels much better, alert answers questions were answered to best my ability discussed home care follow-up care and strict return instructions. Patient verbalized understanding. Patient given Flexeril tablets to go here in the ER . This text was generated using [employer] system, please disregard any oddities of phrase or misspellings. Quality:SDOH Health Related Social Needs: No Data to Display PFSH All Active Problems (Updated 07/16/23 @ 14:49 by Tyesha Brush NP) Lumbago with sciatica, left side (Acute) Medical History (Updated 07/16/23 @ 14:49 by Tyesha Brush NP) Opiate abuse, episodic Asthma Surgical History History of bilateral tubal ligation History of hip surgery Social History Smoking/Tobacco Use Status: Current every day Tobacco Type: cigarettes Smoking risk assessment performed?: Yes Alcohol Intake: current Alcohol Intake frequency: holidays/special occasions only Drug use: Occasionally Substance use type: marijuana and other Details: former heroin use, now on methadone x 2 years Housing: apartment Do you feel safe at home: Yes Do you feel safe in your relationship?: Yes
[2023-07-16] MEDS: Lidocaine 5% Patch 1 PATCH TP (12:46)
[2023-07-16] MEDS: Cyclobenzaprine 10 MG TAB PO (12:46)
--- NOTE | 2023-07-16 14:25 | DI.VRAD_ITS ---
PROCEDURE INFORMATION: Exam: XR Lumbosacral Spine Exam date and time: 07/16/2023 1:23 PM Age: 38 years old Clinical indication: Injury or trauma; Other: Lifting heavy onj yesterday; Sprain or strain, lumbar ligaments TECHNIQUE: Imaging protocol: Radiologic exam of the lumbosacral spine. Views: 4 or 5 views. COMPARISON: No relevant prior studies available. FINDINGS: Bones/joints: There is no evidence of acute fracture.There is no evidence of malalignment or dislocation. Intervertebral disc spaces are narrowed at L5/S1 consistent with degenerative disc disease. Soft tissues: Unremarkable. IMPRESSION: 1. There is no evidence of acute fracture.There is no evidence of malalignment or dislocation. 2. Intervertebral disc spaces are narrowed at L5/S1 consistent with degenerative disc disease. Dictated and Authenticated by: Candy Huntley MD. Ordering:ADRIANA Arambula MD
[2023-07-16] MEDS: Cyclobenzaprine 10 MG TAB, 3 TABS/BTL PO (14:50)
--- NOTE | 2023-07-16 14:55 | NUR.NOTE ---
Referral given to Care Management to assist Pt with obtaining a Primary Care Provider to establish care and follow up to Back Pain
== END 2023-07-16 14:55 | disposition home or self-care (01) ==
PROVIDERS: Emergency Provider Registered Nurse Emergency
DX: M54.42 Lumbago with sciatica, left side (principal); F17.210 Nicotine dependence, cigarettes, uncomplicated
CPT/HCPCS: 99283; 72110